=== PATIENT | female | born 2000 | race Caucasian/White ===

== ENCOUNTER 2020-10-28 18:15 | Emergency (ER) | payer BC ==
--- NOTE | 2020-10-28 20:26 | EDM.PDOC ---
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 She reports she had a positive test on Wednesday of last week. At that time she was seen in the clinic for some abnormal vaginal discharge which she described as "chunky and brown ". This had stopped, however she did have a small amount of this discharge after having sexual intercourse on Wednesday. She had an ultrasound completed in [place] today which showed an area of fluid and possible membranes in the cul-de-sac of the pelvis. Dr. Rothman had been consulted by [place]. She denies any significant abdominal pain. States she occasionally gets some mild pain in her left lower abdomen which she can "massage out ". Denies any pain at this time. Has had no nausea or vomiting. Blood work was completed in [place] today, however the quantitative hCGs are send out test so these results would not be available for 2 days. 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 [No Known Home Meds] 10/28/20 [History] Past Medical History - Past Health History Medical/Surgical History: Denies Medical/Surgical History - Infectious Disease History Infectious Disease History: Reports: Other (See Below) Other Infectious Disease History: hand, foot, and mouth Social & Family History - Family History Family Medical History: No Pertinent Family History - Tobacco Use Tobacco Use Status *Q: Never Tobacco User Second Hand Smoke Exposure: No - Caffeine Use Caffeine Use: Reports: Soda - Recreational Drug Use Recreational Drug Use: No ED ROS GENERAL - Review of Systems Review Of Systems: See Below Constitutional: Reports: No Symptoms HEENT: Reports: No Symptoms Respiratory: Reports: No Symptoms Cardiovascular: Reports: No Symptoms Endocrine: Reports: No Symptoms GI/Abdominal: Reports: No Symptoms : Reports: Discharge (Small amount of brownish discharge Wednesday and Wednesday of last week.), Other (Intermittent left pelvic discomfort) Musculoskeletal: Reports: No Symptoms Skin: Reports: No Symptoms Neurological: Reports: No Symptoms Psychiatric: Reports: No Symptoms Hematologic/Lymphatic: Reports: No Symptoms Immunologic: Reports: No Symptoms ED EXAM - Physical Exam Exam: See Below Exam Limited By: No Limitations General Appearance: Alert, WD/WN, No Apparent Distress Respiratory/Chest: No Respiratory Distress, Lungs Clear, Normal Breath Sounds, No Accessory Muscle Use, Chest Non-Tender Cardiovascular: Normal Peripheral Pulses, Regular Rate, Rhythm, No Edema, No Gallop, No JVD, No Murmur, No Rub GI/Abdominal Exam: Normal Bowel Sounds, Soft, Non-Tender, No Organomegaly, No Distention, No Abnormal Bruit, No Mass, Pelvis Stable Neurological: Alert, Oriented, CN II-XII Intact, Normal Cognition, Normal Gait, Normal Reflexes, No Motor/Sensory Deficits Psychiatric: Normal Affect, Normal Mood Skin Exam: Warm, Dry, Intact, Normal Color, No Rash Course - Vital Signs Last Recorded V/S: Last Vital Signs Temp 98.5 F 10/28/20 18:28 Pulse 115 H 10/28/20 18:28 Resp 14 10/28/20 18:28 BP 138/100 H 10/28/20 18:28 Pulse Ox 100 10/28/20 18:28 - Orders/Labs/Meds Labs: Laboratory Tests 10/28/20 10/28/20 10/28/20 Range/Units 19:00 19:00 19:25 WBC 8.84 (3.98-10.04) K/mm3 RBC 4.35 (3.98-5.22) M/mm3 Hgb 13.1 (11.2-15.7) gm/dl Hct 40.0 (34.1-44.9) % MCV 92.0 (79.4-94.8) fl MCH 30.1 (25.6-32.2) pg MCHC 32.8 (32.2-35.5) g/dl RDW Std Deviation 42.5 (36.4-46.3) fL Plt Count 204 (182-369) K/mm3 MPV 11.0 (9.4-12.3) fl Neut % (Auto) 75.9 H (34.0-71.1) % Lymph % (Auto) 18.0 L (19.3-51.7) % [place] % (Auto) 5.8 (4.7-12.5) % Eos % (Auto) 0.1 L (0.7-5.8) Baso % (Auto) 0.1 (0.1-1.2) % Neut # (Auto) 6.71 H (1.56-6.13) K/mm3 Lymph # (Auto) 1.59 (1.18-3.74) K/mm3 [place] # (Auto) 0.51 H (0.24-0.36) K/mm3 Eos # (Auto) 0.01 L (0.04-0.36) K/mm3 Baso # (Auto) 0.01 (0.01-0.08) K/mm3 Sodium 140 (136-145) mEq/L Potassium 4.0 (3.5-5.1) mEq/L Chloride 105 (98-107) mEq/L Carbon Dioxide 22 (21-32) mEq/L Anion Gap 17.0 H (5-15) BUN 9 (7-18) mg/dL Creatinine 0.9 (0.55-1.02) mg/dL Est Cr Clr Drug Dosing 77.23 mL/min Estimated GFR (MDRD) > 60 (>60) mL/min BUN/Creatinine Ratio 10.0 L (14-18) Glucose 89 (70-99) mg/dL Calcium 8.9 (8.5-10.1) mg/dL Total Bilirubin 0.8 (0.2-1.0) mg/dL AST 26 (15-37) U/L ALT 39 (14-59) U/L Alkaline Phosphatase 60 (46-116) U/L Total Protein 7.7 (6.4-8.2) g/dl Albumin 4.2 (3.4-5.0) g/dl Globulin 3.5 gm/dL Albumin/Globulin Ratio 1.2 (1-2) HCG, Quant 846.0 mIU/mL Urine Color Yellow (Yellow) Urine Appearance Clear (Clear) Urine pH 6.0 (5.0-8.0) Ur Specific [place] 1.025 (1.005-1.030) Urine Protein Negative (Negative) Urine Glucose (UA) Negative (Negative) Urine Ketones 2+ H (Negative) Urine Occult Blood Negative (Negative) Urine Nitrite Negative (Negative) Urine Bilirubin Negative (Negative) Urine Urobilinogen 0.2 (0.2-1.0) Ur Leukocyte Esterase Negative (Negative) Urine RBC 0-5 (0-5) /hpf Urine WBC 0-5 (0-5) /hpf Ur Squamous Epith Cells 0-5 (0-5) /hpf Urine Bacteria Moderate H (FEW) /hpf Urine Mucus Moderate H (FEW) /hpf - Re-Assessments/Exams Free Text/Narrative Re-Assessment/Exam: Patient is a 20-year-old female presenting to the emergency department with concerns of possible ectopic . She had ultrasound completed in [place] today which showed concerning fluid as well as possible membranes in the cu l-de-sac. She is not having any significant pain at this time. Denies any vaginal bleeding. Exam is unremarkable. She has no pelvic tenderness. Case was discussed with TEXTILE CONSERVATOR on-call, Dr. Rothman. He recommended blood work including quantitative hCG. I will call him with results when available. 10/28/20 20:25 Hematology was significant for quantitative hCG of 846. Is otherwise unremarkable. Results were discussed with Dr. Rothman. Since patient is not having any pain at this time and her quantitative hCG is is low, he recommends follow-up in the clinic on Wednesday morning to have hCG rechecked and have ultrasound repeated. Discussed with patient and she is in agreement. Emphasized that if she should experience bleeding, worsening cramping, dizziness, or any other concerning symptoms, she should return to the emergency department immediately for reevaluation. She verbalized understanding of this. Departure - Departure Time of Disposition: 20:53 Disposition: Home, Self-Care 01 Condition: Good Clinical Impression: Pelvic pain affecting Qualifiers: Trimester: first trimester Qualified Code(s): O26.891 - Other specified related conditions, first trimester - Discharge Information *PRESCRIPTION DRUG MONITORING PROGRAM REVIEWED*: No *COPY OF PRESCRIPTION DRUG MONITORING REPORT IN PATIENT LOI: No Instructions: Pelvic Pain, Female, [id number] Referrals: Trevin Rothman MD [Physician] - Forms: ED Department Discharge Additional Instructions: You were seen in the emergency department this evening for evaluation with regards to concern of a possible ectopic after having ultrasound c ompleted in [place] today. Blood work was completed in the ER and your hCG was found to be elevated at 846 which indicates very early . Your case was discussed with TEXTILE CONSERVATOR, Dr. Rothman. He recommends follow-up in the clinic on Wednesday morning to have blood work and ultrasound repeated. In the meantime, if you should experience any worsening of pain, vaginal bleeding, dizziness, rapid heart rate, or any other concerning symptoms, you should return to the emergency department immediately for reevaluation. Sepsis Event Note (ED) - Evaluation Sepsis Screening Result: No Definite Risk
== END 2020-10-28 21:05 | disposition home or self-care (01) ==
LOC: JD.ED 18:15
DX: O99.891 Other specified diseases and conditions complicating pregnancy (principal); R10.2 Pelvic and perineal pain; Z3A.00 Weeks of gestation of pregnancy not specified
CPT/HCPCS: 36415; 80053; 81001; 84702; 85025; 99283; 99284

== ENCOUNTER 2021-06-22 17:41 | Observation (INO) | payer BC ==
[2021-06-22] MEDS ORDERED: Sodium Chloride 0.9% 10 ML Syringe FLUSH PRN (19:28)
[2021-06-22] MEDS ORDERED: Nalbuphine 10 MG/1 ML Vial IVPUSH PRN (19:28)
[2021-06-22] MEDS ORDERED: Ondansetron 4 MG/2 ML SDV IVPUSH PRN (19:28)
[2021-06-22] MEDS ORDERED: Oxytocin/Lactated Ringers 10 UNIT/1,000 ML BAG IV SCH ×2 (19:30)
[2021-06-22] MEDS ORDERED: Misoprostol 25 MCG (1/4 of 100 MCG) Tab VAG ONE (19:37)
[2021-06-22] MEDS: Sodium Chloride 0.9% 10 ML Syringe FLUSH SCH (22:13)
[2021-06-22] MEDS ORDERED: Zolpidem 5 MG Tab PO ONE (22:54)
[2021-06-23] MEDS: Misoprostol 25 MCG (1/4 of 100 MCG) Tab PO SCH ×2 (00:04→04:03)
[2021-06-23] MEDS: Lactated Ringers 1,000 ML IV SCH ×2 (03:56→04:39)
[2021-06-23] MEDS ORDERED: ePHEDrine 50 MG/ML SDV IVPUSH PRN (04:34)
[2021-06-23] MEDS ORDERED: diphenhydrAMINE 50 MG/ML SDV IVPUSH PRN (04:34)
[2021-06-23] MEDS ORDERED: Bupivacaine/fentaNYL/NS 100 ML Bag EPIDUR PRN (04:34)
[2021-06-23] MEDS ORDERED: fentaNYL 100 MCG/2 ML SDV EPIDUR PRN (04:34)
[2021-06-23] MEDS ORDERED: Docusate Sodium 100 MG Cap PO PRN (10:47)
[2021-06-23] MEDS ORDERED: Hydrocortisone Acetate 25 MG Supp RECTAL PRN (10:47)
[2021-06-23] MEDS ORDERED: Witch Hazel Medicated Pads 40/Jar TOP PRN (10:47)
[2021-06-23] MEDS ORDERED: Benzocaine/Menthol 20%-0.5% Spray 78 GM Cannister TOP PRN (10:47)
[2021-06-23] MEDS ORDERED: Acetaminophen 325 MG Tab PO PRN (10:47)
[2021-06-23] MEDS ORDERED: Oxytocin/Lactated Ringers 10 UNIT/1,000 ML BAG IV SCH (10:47)
[2021-06-23] MEDS: Ibuprofen 600 MG Tab PO PRN ×2 (11:15→19:56)
[2021-06-23] MEDS: Sodium Chloride 0.9% 10 ML Syringe FLUSH SCH (11:19)
[2021-06-23] MEDS ORDERED: Lidocaine 1.5% with EPINEPHrine 1:200,000 5 ML Amp ONE (12:00)
[2021-06-23] MEDS ORDERED: Magnesium Hydroxide 400 MG/5 ML Susp 30 ML Cup PO PRN (21:00)
[2021-06-24] MEDS ORDERED: Prenatal Multivitamin with Calcium/Folic Acid/Iron Tab PO SCH (09:00)
[2021-06-24] MEDS: Ibuprofen 600 MG Tab PO PRN (12:54)
[2021-06-24] MEDS ORDERED: Acetaminophen/oxyCODONE 325-5 MG Tab PO PRN (16:01)
== END 2021-06-24 16:30 | disposition home or self-care (01) ==
LOC: JD.OB 17:41 → JD.OBCHECK 17:41 → JD.OB 19:28 → JD.OBCHECK 20:40 → JD.OB 06-23 10:13
PROVIDERS: ADMIT Obstetrics & Gynecology; ATTEND Obstetrics & Gynecology
DX: O13.3 Gestational [pregnancy-induced] hypertension without significant proteinuria, third trimester (principal); O70.0 First degree perineal laceration during delivery; Z3A.38 38 weeks gestation of pregnancy; Z37.0 Single live birth
CPT/HCPCS: 36415; 51701; 51702; 59025; 59409; 80053; 82570; 84156; 85025; 86592; 87635; A9270; J2300; J2405; J2590; J3010; J7120; 01967; U0002